=== PATIENT | male | born 1965 | race Caucasian/White ===

== ENCOUNTER 2020-06-29 09:16 | Inpatient (IN) ==
[2020-06-29 10:00] LABS: Hematocrit 40.4 % (37.5-50.1); Hemoglobin 12.9 g/dL (12.9-16.9); Mean Corpuscular HGB Conc 31.9 g/dL (31.6-35.5); Mean Corpuscular Hemoglobin 27.4 pg (28.0-33.3); Mean Platelet Volume 10.5 fL (9.4-12.4); Nucleated Red Blood Cells 0.2 /100 WBC (0); Platelet Count 163 K/mcL (140-400); Red Cell Distribution Width 14.6 % (11.5-14.5); White Blood Count 9.6 K/mcL (4.3-11.1)
[2020-06-29 10:13] LABS: INR 1.2; Prothrombin Time 13.3 Seconds (9.4-12.1)
[2020-06-29 10:18] LABS: Alanine Aminotransferase 25 Units/L (7-52); Albumin 3.5 g/dL (3.5-5.7); Alkaline Phosphatase 68 Units/L (34-104); Aspartate Amino Transferase 21 Units/L (13-39); BUN/Creatinine Ratio 18 (6-26); Bilirubin,Total 0.3 mg/dL (0.3-1.0); Blood Urea Nitrogen 12 mg/dL (6-20); Calcium 8.4 mg/dL (8.6-10.3); Carbon Dioxide 26 mEq/L (23-29); Chloride 106 mEq/L (98-107); Globulin 3.4 g/dL (2.4-3.5); Glucose 116 mg/dL (70-105); Magnesium 1.6 mg/dL (1.6-2.6); Osmolality,Calculated 297 (280-300); Phosphorous 1.6 mg/dL (2.7-4.5); Potassium 3.4 mEq/L (3.5-5.1); Sodium 143 mEq/L (136-145); Total Protein 6.9 g/dL (6.4-8.9); eGFR For African Americans > 60 (> 60); eGFR For Non-African Americans > 60 (> 60)
[2020-06-29 10:19] LABS: Troponin I < 0.03 ng/mL (< 0.04)
[2020-06-29 10:20] LABS: D-Dimer 689 ng/mLFEU (0-500)
[2020-06-29 10:27] LABS: Lymphocytes # 0.4 K/mcL (0.6-4.6); Monocytes # 0.2 K/mcL (0.0-1.3); Neutrophils # 8.8 K/mcL (1.6-8.9)
[2020-06-29 10:30] LABS: Heparin anti-factor XA UFH < 0.04 IU/mL (0.30-0.70)
[2020-06-29] MEDS ORDERED: Isovue-370 500 ML BOTTLE IVP ONE (10:53)
[2020-06-29] MEDS ORDERED: Dexamethasone 4 MG/ML VIAL IVP ONE ×2 (10:56→11:48)
[2020-06-29] MEDS ORDERED: Naloxone 0.4 MG/ML INJ IVP PRN (11:44)
[2020-06-29] MEDS ORDERED: Ondansetron 4 MG/2 ML VIAL IVP PRN (11:44)
[2020-06-29] MEDS ORDERED: Acetaminophen 325 MG TABLET PO PRN (12:23)
[2020-06-29 12:29] LABS: ABG Base Excess 1 mEq/L (-2 to 3); ABG HCO3 27 mEq/L (21-27); ABG Oxygen Saturation 94 % (95-98); ABG PCO2 48 mmHg (35-45); ABG PH 7.37 pH Units (7.32-7.45); ABG PO2 75 mmHg (85-104); ABG TCO2 29 mEq/L (20-26); Blood Gas FiO2 2.5 (1-15=lpm or21-100=%)
[2020-06-29] MEDS: levoFLOXacin 750 MG/150 ML 750 MG/150 ML BAG IVPB SCH (14:37)
[2020-06-29] MEDS: Sucralfate 1 GM TABLET PO SCH ×2 (14:38→20:40)
[2020-06-29] MEDS: risperiDONE 1 MG TABLET PO SCH (20:40)
[2020-06-29] MEDS: Lactobacillus 1 EACH CAP.SPRINK PO SCH (20:40)
[2020-06-29] MEDS: Topiramate 25 MG TABLET PO SCH (20:41)
[2020-06-30] MEDS: *HR* Enoxaparin 40 MG/0.4 ML SYRINGE SQ SCH (06:34)
[2020-06-30 06:44] LABS: Basophils # 0.1 K/mcL (0.0-0.2); Basophils % 0.6 %; Hematocrit 37.6 % (37.5-50.1); Hemoglobin 11.8 g/dL (12.9-16.9); Immature Granulocytes % 5.9 % (0-4); Lymphocytes # 1.2 K/mcL (0.6-4.6); Mean Corpuscular HGB Conc 31.4 g/dL (31.6-35.5); Mean Corpuscular Hemoglobin 27.3 pg (28.0-33.3); Mean Corpuscular Volume 86.8 fL (83.0-100.0); Mean Platelet Volume 10.3 fL (9.4-12.4); Monocytes # 0.7 K/mcL (0.0-1.3); Monocytes % 6.5 %; Neutrophils # 8.6 K/mcL (1.6-8.9); Nucleated Red Blood Cells 0.2 /100 WBC (0); Platelet Count 171 K/mcL (140-400); Red Blood Count 4.33 M/mcL (4.19-5.50); Red Cell Distribution Width 14.7 % (11.5-14.5); White Blood Count 11.3 K/mcL (4.3-11.1)
[2020-06-30 07:00] LABS: Bilirubin,Urine Negative (Negative); Blood,Urine Negative (Negative); Clarity,Urine Clear (Clear); Color,Urine Yellow (Yellow); Glucose,Urine (UA) Normal (Normal); Ketones,Urine Negative (Negative); Leukocyte Esterase,Urine Negative (Negative); Nitrite,Urine Negative (Negative); Protein,Urine 100 mg/dL (Neg-Trace); Specific Gravity,Urine >= 1.030 (1.010-1.025); Urobilinogen,Urine Normal (Normal)
[2020-06-30 07:04] LABS: RBC,Urine 0-3 per hpf (0-3); Squamous Epithelial Cell,Urine Few per hpf (None-Few); WBC,Urine 0-3 per hpf (0-3)
[2020-06-30 07:12] LABS: BUN/Creatinine Ratio 38 (6-26); Blood Urea Nitrogen 19 mg/dL (6-20); Calcium 8.4 mg/dL (8.6-10.3); Carbon Dioxide 30 mEq/L (23-29); Chloride 109 mEq/L (98-107); Glucose 110 mg/dL (70-105); Magnesium 1.9 mg/dL (1.6-2.6); Osmolality,Calculated 305 (280-300); Phosphorous 2.7 mg/dL (2.7-4.5); Potassium 3.6 mEq/L (3.5-5.1); Sodium 146 mEq/L (136-145); eGFR For African Americans > 60 (> 60); eGFR For Non-African Americans > 60 (> 60)
[2020-06-30 07:27] LABS: D-Dimer 626 ng/mLFEU (0-500)
[2020-06-30 09:37] LABS: Lactate Dehydrogenase 392 Units/L (140-271)
[2020-06-30 09:40] LABS: Fibrinogen 793 mg/dL (169-393)
[2020-06-30] MEDS: Topiramate 25 MG TABLET PO SCH ×2 (09:51→21:18)
[2020-06-30] MEDS: Aspirin Enteric Coated 81 MG Tablet PO SCH (09:51)
[2020-06-30] MEDS: LINZESS 145MG PO SCH (09:52)
[2020-06-30] MEDS: Sucralfate 1 GM TABLET PO SCH ×4 (09:52→22:46)
[2020-06-30] MEDS: risperiDONE 1 MG TABLET PO SCH ×2 (09:52→21:18)
[2020-06-30] MEDS: Cholecalciferol (D-3) 1,000 UNIT (25MCG) TABLET PO SCH (09:52)
[2020-06-30] MEDS: Lactobacillus 1 EACH CAP.SPRINK PO SCH ×2 (09:52→21:18)
[2020-06-30 09:55] LABS: Ferritin 705 ng/mL (20-250)
[2020-06-30] MEDS: Dexamethasone 4 MG/ML VIAL IVP SCH (13:02)
[2020-06-30] MEDS: levoFLOXacin 750 MG/150 ML 750 MG/150 ML BAG IVPB SCH (13:09)
[2020-07-01] MEDS: *HR* Enoxaparin 40 MG/0.4 ML SYRINGE SQ SCH (06:34)
[2020-07-01] MEDS: Sucralfate 1 GM TABLET PO SCH ×4 (06:34→20:31)
[2020-07-01 08:02] LABS: Basophils % 0.2 %; Eosinophils % 0.4 %; Hematocrit 38.2 % (37.5-50.1); Hemoglobin 11.9 g/dL (12.9-16.9); Lymphocytes # 1.8 K/mcL (0.6-4.6); Lymphocytes % 20.1 %; Mean Corpuscular HGB Conc 31.2 g/dL (31.6-35.5); Mean Corpuscular Hemoglobin 27.3 pg (28.0-33.3); Mean Corpuscular Volume 87.6 fL (83.0-100.0); Mean Platelet Volume 10.5 fL (9.4-12.4); Monocytes # 0.6 K/mcL (0.0-1.3); Monocytes % 6.6 %; Neutrophils # 5.8 K/mcL (1.6-8.9); Platelet Count 202 K/mcL (140-400); Red Blood Count 4.36 M/mcL (4.19-5.50); Red Cell Distribution Width 14.7 % (11.5-14.5); Segmented Neutrophils % 64.7 %
[2020-07-01 08:12] LABS: BUN/Creatinine Ratio 33 (6-26); Blood Urea Nitrogen 20 mg/dL (6-20); Calcium 8.4 mg/dL (8.6-10.3); Carbon Dioxide 30 mEq/L (23-29); Chloride 108 mEq/L (98-107); Glucose 106 mg/dL (70-105); Osmolality,Calculated 303 (280-300); Potassium 3.6 mEq/L (3.5-5.1); Sodium 145 mEq/L (136-145); eGFR For African Americans > 60 (> 60); eGFR For Non-African Americans > 60 (> 60)
[2020-07-01] MEDS: Dexamethasone 4 MG/ML VIAL IVP SCH (08:13)
[2020-07-01 08:53] LABS: Anisocytosis 1+ (Not Present); Large Platelets Present (Not Present); Platelet Estimate Normal (Normal); Reactive Lymphocytes Present (Not Present); Toxic Granulation Present (Not Present)
[2020-07-01] MEDS: Lactobacillus 1 EACH CAP.SPRINK PO SCH ×2 (12:23→20:31)
[2020-07-01] MEDS: Topiramate 25 MG TABLET PO SCH ×2 (12:24→20:59)
[2020-07-01] MEDS: Aspirin Enteric Coated 81 MG Tablet PO SCH (12:26)
[2020-07-01] MEDS: Cholecalciferol (D-3) 1,000 UNIT (25MCG) TABLET PO SCH (12:26)
[2020-07-01] MEDS: levoFLOXacin 750 MG/150 ML 750 MG/150 ML BAG IVPB SCH (12:47)
[2020-07-01] MEDS: LINZESS 145MG PO SCH (13:10)
[2020-07-02] MEDS: *HR* Enoxaparin 40 MG/0.4 ML SYRINGE SQ SCH (06:23)
[2020-07-02 07:43] LABS: Hematocrit 38.3 % (37.5-50.1); Hemoglobin 12.2 g/dL (12.9-16.9); Mean Corpuscular HGB Conc 31.9 g/dL (31.6-35.5); Mean Corpuscular Hemoglobin 27.5 pg (28.0-33.3); Mean Corpuscular Volume 86.5 fL (83.0-100.0); Mean Platelet Volume 10.2 fL (9.4-12.4); Nucleated Red Blood Cells 0.2 /100 WBC (0); Platelet Count 245 K/mcL (140-400); Red Blood Count 4.43 M/mcL (4.19-5.50); Red Cell Distribution Width 14.6 % (11.5-14.5); White Blood Count 11.5 K/mcL (4.3-11.1)
[2020-07-02 08:04] LABS: BUN/Creatinine Ratio 35 (6-26); Blood Urea Nitrogen 24 mg/dL (6-20); Calcium 8.5 mg/dL (8.6-10.3); Carbon Dioxide 29 mEq/L (23-29); Chloride 107 mEq/L (98-107); Glucose 93 mg/dL (70-105); Osmolality,Calculated 302 (280-300); Potassium 3.5 mEq/L (3.5-5.1); Sodium 144 mEq/L (136-145); eGFR For African Americans > 60 (> 60); eGFR For Non-African Americans > 60 (> 60)
[2020-07-02] MEDS: Topiramate 25 MG TABLET PO SCH ×2 (08:31→20:21)
[2020-07-02] MEDS: Aspirin Enteric Coated 81 MG Tablet PO SCH (08:31)
[2020-07-02] MEDS: Cholecalciferol (D-3) 1,000 UNIT (25MCG) TABLET PO SCH (08:31)
[2020-07-02] MEDS: Lactobacillus 1 EACH CAP.SPRINK PO SCH ×2 (08:32→20:21)
[2020-07-02] MEDS: Sucralfate 1 GM TABLET PO SCH ×4 (08:32→20:21)
[2020-07-02] MEDS: Dexamethasone 4 MG/ML VIAL IVP SCH (08:32)
[2020-07-02] MEDS: LINZESS 145MG PO SCH (08:33)
[2020-07-02] MEDS: risperiDONE 1 MG TABLET PO SCH ×2 (08:41→20:22)
[2020-07-02 08:47] LABS: Lymphocytes # 3.9 K/mcL (0.6-4.6); Monocytes # 0.9 K/mcL (0.0-1.3); Neutrophils # 6.2 K/mcL (1.6-8.9); Platelet Estimate Normal (Normal); Reactive Lymphocytes Present (Not Present)
[2020-07-02] MEDS: levoFLOXacin 750 MG/150 ML 750 MG/150 ML BAG IVPB SCH (12:04)
[2020-07-02 12:56] LABS: C-Reactive Protein 27 mg/L (Less than 10)
[2020-07-02 13:03] LABS: Ferritin 658 ng/mL (20-250)
[2020-07-03] MEDS: *HR* Enoxaparin 40 MG/0.4 ML SYRINGE SQ SCH (05:36)
[2020-07-03 06:54] LABS: Hematocrit 38.3 % (37.5-50.1); Hemoglobin 12.1 g/dL (12.9-16.9); Mean Corpuscular HGB Conc 31.6 g/dL (31.6-35.5); Mean Corpuscular Hemoglobin 27.2 pg (28.0-33.3); Mean Corpuscular Volume 86.1 fL (83.0-100.0); Mean Platelet Volume 10.1 fL (9.4-12.4); Platelet Count 261 K/mcL (140-400); Red Blood Count 4.45 M/mcL (4.19-5.50); Red Cell Distribution Width 14.5 % (11.5-14.5); White Blood Count 12.5 K/mcL (4.3-11.1)
[2020-07-03 07:20] LABS: BUN/Creatinine Ratio 41 (6-26); Blood Urea Nitrogen 25 mg/dL (6-20); Calcium 8.3 mg/dL (8.6-10.3); Carbon Dioxide 28 mEq/L (23-29); Chloride 105 mEq/L (98-107); Glucose 90 mg/dL (70-105); Osmolality,Calculated 296 (280-300); Potassium 3.4 mEq/L (3.5-5.1); Sodium 141 mEq/L (136-145); eGFR For African Americans > 60 (> 60); eGFR For Non-African Americans > 60 (> 60)
[2020-07-03] MEDS: Aspirin Enteric Coated 81 MG Tablet PO SCH (08:06)
[2020-07-03] MEDS: LINZESS 145MG PO SCH (08:06)
[2020-07-03] MEDS: Lactobacillus 1 EACH CAP.SPRINK PO SCH ×2 (08:06→20:09)
[2020-07-03] MEDS: Cholecalciferol (D-3) 1,000 UNIT (25MCG) TABLET PO SCH (08:07)
[2020-07-03] MEDS: Sucralfate 1 GM TABLET PO SCH ×4 (08:07→20:09)
[2020-07-03] MEDS: risperiDONE 1 MG TABLET PO SCH ×2 (08:08→20:09)
[2020-07-03] MEDS: Topiramate 25 MG TABLET PO SCH ×2 (08:09→20:08)
[2020-07-03] MEDS: Dexamethasone 4 MG/ML VIAL IVP SCH (08:10)
[2020-07-03 08:31] LABS: Eosinophils # 0.3 K/mcL (0.0-0.6); Neutrophils # 6.5 K/mcL (1.6-8.9)
[2020-07-03 08:32] LABS: Hypersegmented Neutrophils Present (Not Present); Platelet Estimate Normal (Normal)
[2020-07-03] MEDS: levoFLOXacin 750 MG/150 ML 750 MG/150 ML BAG IVPB SCH (13:25)
[2020-07-04] MEDS: Sucralfate 1 GM TABLET PO SCH ×2 (06:12→10:21)
[2020-07-04] MEDS: *HR* Enoxaparin 40 MG/0.4 ML SYRINGE SQ SCH (06:12)
[2020-07-04 07:35] LABS: Hematocrit 39.7 % (37.5-50.1); Hemoglobin 12.6 g/dL (12.9-16.9); Mean Corpuscular HGB Conc 31.7 g/dL (31.6-35.5); Mean Corpuscular Hemoglobin 27.3 pg (28.0-33.3); Mean Corpuscular Volume 85.9 fL (83.0-100.0); Mean Platelet Volume 9.6 fL (9.4-12.4); Platelet Count 268 K/mcL (140-400); Red Blood Count 4.62 M/mcL (4.19-5.50); Red Cell Distribution Width 14.6 % (11.5-14.5); White Blood Count 13.3 K/mcL (4.3-11.1)
[2020-07-04 07:54] VITALS: BP 106/67
[2020-07-04 07:54] LABS: BUN/Creatinine Ratio 40 (6-26); Blood Urea Nitrogen 25 mg/dL (6-20); Calcium 8.5 mg/dL (8.6-10.3); Carbon Dioxide 28 mEq/L (23-29); Chloride 106 mEq/L (98-107); Glucose 98 mg/dL (70-105); Osmolality,Calculated 296 (280-300); Potassium 3.3 mEq/L (3.5-5.1); Sodium 141 mEq/L (136-145); eGFR For African Americans > 60 (> 60); eGFR For Non-African Americans > 60 (> 60)
[2020-07-04] MEDS: Dexamethasone 4 MG/ML VIAL IVP SCH (10:20)
[2020-07-04] MEDS: risperiDONE 1 MG TABLET PO SCH (10:21)
[2020-07-04] MEDS: Topiramate 25 MG TABLET PO SCH (10:21)
[2020-07-04] MEDS: Aspirin Enteric Coated 81 MG Tablet PO SCH (10:21)
[2020-07-04] MEDS: Cholecalciferol (D-3) 1,000 UNIT (25MCG) TABLET PO SCH (10:22)
[2020-07-04] MEDS: Lactobacillus 1 EACH CAP.SPRINK PO SCH (10:23)
[2020-07-04] MEDS: LINZESS 145MG PO SCH (10:29)
[2020-07-04] MEDS: levoFLOXacin 750 MG/150 ML 750 MG/150 ML BAG IVPB SCH (14:21)
== END 2020-07-04 17:30 | disposition other institution (70) | DRG 871 ==
LOC: INPPIK 09:16 → EMEROOPIK 09:16 → INPPIK 13:36
PROVIDERS: ADMIT Family Medicine; ATTEND Family Medicine

== ENCOUNTER 2020-07-04 17:32 | Inpatient (IN) ==
[2020-07-04] MEDS ORDERED: Ondansetron ODT 4 MG TAB.RAPDIS SL PRN (17:45)
[2020-07-04] MEDS ORDERED: Acetaminophen 325 MG TABLET PO PRN (17:45)
[2020-07-04] MEDS: risperiDONE 1 MG TABLET PO SCH (21:05)
[2020-07-04] MEDS: Sucralfate 1 GM TABLET PO SCH (21:06)
[2020-07-04] MEDS: Lactobacillus 1 EACH CAP.SPRINK PO SCH (21:06)
[2020-07-04] MEDS: WHEAT DEXTRIN PO SCH (21:06)
[2020-07-04] MEDS: Topiramate 25 MG TABLET PO SCH (21:06)
[2020-07-05] MEDS: *HR* Enoxaparin 40 MG/0.4 ML SYRINGE SQ SCH (06:18)
[2020-07-05 06:56] LABS: Basophils % 0.3 %; Eosinophils # 0.2 K/mcL (0.0-0.6); Eosinophils % 1.5 %; Hematocrit 39.9 % (37.5-50.1); Hemoglobin 12.9 g/dL (12.9-16.9); Immature Granulocytes % 15.7 % (0-4); Lymphocytes # 3.1 K/mcL (0.6-4.6); Lymphocytes % 21.5 %; Mean Corpuscular HGB Conc 32.3 g/dL (31.6-35.5); Mean Corpuscular Hemoglobin 27.5 pg (28.0-33.3); Mean Corpuscular Volume 85.1 fL (83.0-100.0); Mean Platelet Volume 10.1 fL (9.4-12.4); Monocytes # 1.2 K/mcL (0.0-1.3); Neutrophils # 7.6 K/mcL (1.6-8.9); Platelet Count 287 K/mcL (140-400); Red Blood Count 4.69 M/mcL (4.19-5.50); Red Cell Distribution Width 14.3 % (11.5-14.5); White Blood Count 14.4 K/mcL (4.3-11.1)
[2020-07-05 07:17] LABS: BUN/Creatinine Ratio 37 (6-26); Blood Urea Nitrogen 23 mg/dL (6-20); Calcium 8.6 mg/dL (8.6-10.3); Carbon Dioxide 24 mEq/L (23-29); Chloride 105 mEq/L (98-107); Glucose 98 mg/dL (70-105); Osmolality,Calculated 290 (280-300); Potassium 3.5 mEq/L (3.5-5.1); Sodium 138 mEq/L (136-145); eGFR For African Americans > 60 (> 60); eGFR For Non-African Americans > 60 (> 60)
[2020-07-05] MEDS: risperiDONE 1 MG TABLET PO SCH ×2 (08:46→21:02)
[2020-07-05] MEDS: Sucralfate 1 GM TABLET PO SCH ×4 (08:46→21:01)
[2020-07-05] MEDS: Lactobacillus 1 EACH CAP.SPRINK PO SCH ×2 (08:46→21:02)
[2020-07-05] MEDS: Metoprolol XL (24 HR) Succ 50 MG TAB.ER.24H PO SCH (08:46)
[2020-07-05] MEDS: Topiramate 25 MG TABLET PO SCH ×2 (08:46→21:01)
[2020-07-05] MEDS: Cholecalciferol (D-3) 1,000 UNIT (25MCG) TABLET PO SCH (08:47)
[2020-07-05] MEDS: (Linaclotide [Linzess] 145 MCG) PO SCH (08:47)
[2020-07-05] MEDS: WHEAT DEXTRIN PO SCH ×2 (08:47→20:34)
[2020-07-05] MEDS: Aspirin Enteric Coated 81 MG Tablet PO SCH (08:47)
[2020-07-05] MEDS: Multivit/Ca/Min/Fe/FA 1 TAB TABLET PO SCH (08:47)
[2020-07-05] MEDS ORDERED: Dexamethasone 4 MG/ML VIAL IVP SCH (09:00)
[2020-07-05] MEDS ORDERED: levoFLOXacin 750 MG/150 ML 750 MG/150 ML BAG IVPB SCH (09:00)
[2020-07-06] MEDS: *HR* Enoxaparin 40 MG/0.4 ML SYRINGE SQ SCH (04:59)
[2020-07-06] MEDS: Sucralfate 1 GM TABLET PO SCH ×4 (08:14→21:26)
[2020-07-06] MEDS: Topiramate 25 MG TABLET PO SCH ×2 (09:13→21:26)
[2020-07-06] MEDS: levoFLOXacin 750 MG TABLET PO SCH (09:13)
[2020-07-06] MEDS: dexAMETHasone 4 MG TABLET PO SCH (09:13)
[2020-07-06] MEDS: Lactobacillus 1 EACH CAP.SPRINK PO SCH ×2 (09:13→21:28)
[2020-07-06] MEDS: risperiDONE 1 MG TABLET PO SCH ×2 (09:13→21:29)
[2020-07-06] MEDS: Cholecalciferol (D-3) 1,000 UNIT (25MCG) TABLET PO SCH (09:13)
[2020-07-06] MEDS: Metoprolol XL (24 HR) Succ 50 MG TAB.ER.24H PO SCH (09:13)
[2020-07-06] MEDS: Aspirin Enteric Coated 81 MG Tablet PO SCH (09:13)
[2020-07-06] MEDS: Multivit/Ca/Min/Fe/FA 1 TAB TABLET PO SCH (09:13)
[2020-07-06] MEDS: WHEAT DEXTRIN PO SCH ×2 (09:14→21:28)
[2020-07-06] MEDS: (Linaclotide [Linzess] 145 MCG) PO SCH (09:14)
[2020-07-07] MEDS: *HR* Enoxaparin 40 MG/0.4 ML SYRINGE SQ SCH (04:56)
[2020-07-07] MEDS: Cholecalciferol (D-3) 1,000 UNIT (25MCG) TABLET PO SCH (07:54)
[2020-07-07] MEDS: (Linaclotide [Linzess] 145 MCG) PO SCH (07:54)
[2020-07-07] MEDS: Lactobacillus 1 EACH CAP.SPRINK PO SCH ×2 (07:54→21:48)
[2020-07-07] MEDS: Aspirin Enteric Coated 81 MG Tablet PO SCH (07:54)
[2020-07-07] MEDS: risperiDONE 1 MG TABLET PO SCH ×2 (07:55→21:48)
[2020-07-07] MEDS: Multivit/Ca/Min/Fe/FA 1 TAB TABLET PO SCH (07:55)
[2020-07-07] MEDS: levoFLOXacin 750 MG TABLET PO SCH (07:56)
[2020-07-07] MEDS: Sucralfate 1 GM TABLET PO SCH ×4 (07:56→21:49)
[2020-07-07] MEDS: Metoprolol XL (24 HR) Succ 50 MG TAB.ER.24H PO SCH (07:58)
[2020-07-07] MEDS: dexAMETHasone 4 MG TABLET PO SCH (07:58)
[2020-07-07] MEDS: WHEAT DEXTRIN PO SCH ×2 (08:00→21:49)
[2020-07-07] MEDS: Topiramate 25 MG TABLET PO SCH ×2 (08:00→21:49)
[2020-07-08] MEDS: Sucralfate 1 GM TABLET PO SCH ×4 (05:51→19:53)
[2020-07-08] MEDS: *HR* Enoxaparin 40 MG/0.4 ML SYRINGE SQ SCH (05:51)
[2020-07-08 08:08] LABS: Hemoglobin 14.4 g/dL (12.9-16.9); Mean Corpuscular HGB Conc 31.3 g/dL (31.6-35.5); Mean Corpuscular Hemoglobin 27.2 pg (28.0-33.3); Mean Corpuscular Volume 86.8 fL (83.0-100.0); Mean Platelet Volume 10.7 fL (9.4-12.4); Platelet Count 272 K/mcL (140-400); Red Cell Distribution Width 14.2 % (11.5-14.5)
[2020-07-08] MEDS: Cholecalciferol (D-3) 1,000 UNIT (25MCG) TABLET PO SCH (08:15)
[2020-07-08] MEDS: dexAMETHasone 4 MG TABLET PO SCH (08:16)
[2020-07-08] MEDS: Multivit/Ca/Min/Fe/FA 1 TAB TABLET PO SCH (08:17)
[2020-07-08] MEDS: risperiDONE 1 MG TABLET PO SCH ×2 (08:17→19:49)
[2020-07-08] MEDS: levoFLOXacin 750 MG TABLET PO SCH (08:17)
[2020-07-08] MEDS: Metoprolol XL (24 HR) Succ 50 MG TAB.ER.24H PO SCH (08:17)
[2020-07-08] MEDS: Topiramate 25 MG TABLET PO SCH ×2 (08:17→19:49)
[2020-07-08] MEDS: Aspirin Enteric Coated 81 MG Tablet PO SCH (08:17)
[2020-07-08] MEDS: Lactobacillus 1 EACH CAP.SPRINK PO SCH ×2 (08:17→19:48)
[2020-07-08] MEDS: (Linaclotide [Linzess] 145 MCG) PO SCH (08:18)
[2020-07-08] MEDS: WHEAT DEXTRIN PO SCH ×2 (08:18→19:49)
[2020-07-08 08:27] LABS: BUN/Creatinine Ratio 29 (6-26); Blood Urea Nitrogen 20 mg/dL (6-20); Calcium 9.1 mg/dL (8.6-10.3); Carbon Dioxide 33 mEq/L (23-29); Chloride 102 mEq/L (98-107); Glucose 94 mg/dL (70-105); Osmolality,Calculated 294 (280-300); Potassium 3.7 mEq/L (3.5-5.1); Sodium 141 mEq/L (136-145); eGFR For African Americans > 60 (> 60); eGFR For Non-African Americans > 60 (> 60)
[2020-07-09] MEDS: *HR* Enoxaparin 40 MG/0.4 ML SYRINGE SQ SCH (06:40)
[2020-07-09] MEDS: Sucralfate 1 GM TABLET PO SCH ×4 (06:40→21:23)
[2020-07-09] MEDS: Cholecalciferol (D-3) 1,000 UNIT (25MCG) TABLET PO SCH (08:20)
[2020-07-09] MEDS: Metoprolol XL (24 HR) Succ 50 MG TAB.ER.24H PO SCH (08:20)
[2020-07-09] MEDS: Topiramate 25 MG TABLET PO SCH ×2 (08:21→21:23)
[2020-07-09] MEDS: risperiDONE 1 MG TABLET PO SCH ×2 (08:21→21:24)
[2020-07-09] MEDS: WHEAT DEXTRIN PO SCH ×2 (08:21→21:26)
[2020-07-09] MEDS: Multivit/Ca/Min/Fe/FA 1 TAB TABLET PO SCH (08:21)
[2020-07-09] MEDS: Aspirin Enteric Coated 81 MG Tablet PO SCH (08:21)
[2020-07-09] MEDS: Lactobacillus 1 EACH CAP.SPRINK PO SCH ×2 (08:21→21:23)
[2020-07-09] MEDS: dexAMETHasone 4 MG TABLET PO SCH (08:21)
[2020-07-09] MEDS: (Linaclotide [Linzess] 145 MCG) PO SCH (08:25)
[2020-07-10] MEDS: *HR* Enoxaparin 40 MG/0.4 ML SYRINGE SQ SCH (06:06)
[2020-07-10] MEDS: Metoprolol XL (24 HR) Succ 50 MG TAB.ER.24H PO SCH (09:07)
[2020-07-10] MEDS: Cholecalciferol (D-3) 1,000 UNIT (25MCG) TABLET PO SCH (09:07)
[2020-07-10] MEDS: Sucralfate 1 GM TABLET PO SCH ×4 (09:08→21:11)
[2020-07-10] MEDS: risperiDONE 1 MG TABLET PO SCH ×2 (09:08→21:11)
[2020-07-10] MEDS: Multivit/Ca/Min/Fe/FA 1 TAB TABLET PO SCH (09:08)
[2020-07-10] MEDS: Topiramate 25 MG TABLET PO SCH ×2 (09:08→21:11)
[2020-07-10] MEDS: Lactobacillus 1 EACH CAP.SPRINK PO SCH ×2 (09:09→21:10)
[2020-07-10] MEDS: Aspirin Enteric Coated 81 MG Tablet PO SCH (09:09)
[2020-07-10] MEDS: WHEAT DEXTRIN PO SCH ×2 (09:10→21:11)
[2020-07-10] MEDS: (Linaclotide [Linzess] 145 MCG) PO SCH (09:11)
[2020-07-11] MEDS: *HR* Enoxaparin 40 MG/0.4 ML SYRINGE SQ SCH (06:29)
[2020-07-11] MEDS: Sucralfate 1 GM TABLET PO SCH ×4 (07:47→20:47)
[2020-07-11] MEDS: risperiDONE 1 MG TABLET PO SCH ×2 (09:03→20:47)
[2020-07-11] MEDS: Multivit/Ca/Min/Fe/FA 1 TAB TABLET PO SCH (09:03)
[2020-07-11] MEDS: Topiramate 25 MG TABLET PO SCH ×2 (09:03→20:46)
[2020-07-11] MEDS: Cholecalciferol (D-3) 1,000 UNIT (25MCG) TABLET PO SCH (09:03)
[2020-07-11] MEDS: Lactobacillus 1 EACH CAP.SPRINK PO SCH ×2 (09:03→20:46)
[2020-07-11] MEDS: Aspirin Enteric Coated 81 MG Tablet PO SCH (09:03)
[2020-07-11] MEDS: WHEAT DEXTRIN PO SCH ×2 (09:04→20:47)
[2020-07-11] MEDS: Metoprolol XL (24 HR) Succ 50 MG TAB.ER.24H PO SCH ×2 (09:04→09:44)
[2020-07-11] MEDS: (Linaclotide [Linzess] 145 MCG) PO SCH ×2 (09:04→09:07)
[2020-07-11 09:23] LABS: Basophils # 0.1 K/mcL (0.0-0.2); Basophils % 1.3 %; Eosinophils # 0.2 K/mcL (0.0-0.6); Eosinophils % 1.9 %; Hematocrit 42.2 % (37.5-50.1); Hemoglobin 13.2 g/dL (12.9-16.9); Immature Granulocytes % 3.2 % (0-4); Lymphocytes # 2.9 K/mcL (0.6-4.6); Lymphocytes % 28.9 %; Mean Corpuscular HGB Conc 31.3 g/dL (31.6-35.5); Mean Corpuscular Volume 86.5 fL (83.0-100.0); Mean Platelet Volume 11.1 fL (9.4-12.4); Monocytes # 0.7 K/mcL (0.0-1.3); Monocytes % 7.3 %; Neutrophils # 5.7 K/mcL (1.6-8.9); Platelet Count 283 K/mcL (140-400); Red Blood Count 4.88 M/mcL (4.19-5.50); Red Cell Distribution Width 14.6 % (11.5-14.5); Segmented Neutrophils % 57.4 %; White Blood Count 9.9 K/mcL (4.3-11.1)
[2020-07-11 09:41] LABS: BUN/Creatinine Ratio 26 (6-26); Blood Urea Nitrogen 19 mg/dL (6-20); Calcium 8.5 mg/dL (8.6-10.3); Carbon Dioxide 26 mEq/L (23-29); Chloride 105 mEq/L (98-107); Glucose 129 mg/dL (70-105); Osmolality,Calculated 296 (280-300); Potassium 3.4 mEq/L (3.5-5.1); Sodium 141 mEq/L (136-145); eGFR For African Americans > 60 (> 60); eGFR For Non-African Americans > 60 (> 60)
[2020-07-11 18:26] VITALS: BP 105/66
[2020-07-12] MEDS: *HR* Enoxaparin 40 MG/0.4 ML SYRINGE SQ SCH (06:43)
[2020-07-12] MEDS: Metoprolol XL (24 HR) Succ 50 MG TAB.ER.24H PO SCH (08:26)
[2020-07-12] MEDS: Multivit/Ca/Min/Fe/FA 1 TAB TABLET PO SCH (08:26)
[2020-07-12] MEDS: Topiramate 25 MG TABLET PO SCH (08:26)
[2020-07-12] MEDS: Lactobacillus 1 EACH CAP.SPRINK PO SCH (08:26)
[2020-07-12] MEDS: Aspirin Enteric Coated 81 MG Tablet PO SCH (08:26)
[2020-07-12] MEDS: Cholecalciferol (D-3) 1,000 UNIT (25MCG) TABLET PO SCH (08:26)
[2020-07-12] MEDS: Sucralfate 1 GM TABLET PO SCH (08:26)
[2020-07-12] MEDS: risperiDONE 1 MG TABLET PO SCH (08:26)
[2020-07-12] MEDS: WHEAT DEXTRIN PO SCH (08:27)
[2020-07-12] MEDS: (Linaclotide [Linzess] 145 MCG) PO SCH (08:27)
== END 2020-07-12 09:45 | disposition home health service (06) | DRG 177 ==
LOC: INPPIK 18:11
PROVIDERS: ADMIT Family Medicine; ATTEND Family Medicine